=== PATIENT | male | born 1950 | race Caucasian/White ===

== ENCOUNTER 2016-07-29 08:51 | Day surgery (SDC) | payer BC, MEDICARE ==
[~2016-07-29] VITALS: Ht 188.1 cm; Wt 93.2 kg
[2016-07-29] VITALS (9 sets, daily range): BP systolic 100–118; BP diastolic 60–77; PULSE 60–62; TEMP 97
[~2016-07-29 08:51] MED LIST: AGGRENOX ER 251 CER PO; ASPIRIN E.C. 8181 MG PO; BETAPACE 80MG80 MG PO; CEPHALEXIN500 M1 PO; GLUCOSAMINE & C1 CA1 PO; GLUCOTROL XL10 MG PO; GLUCOTROL10 MG PO; KOMBIGLYZE XR 11 TER PO; LIPITOR 10MG10 MG PO; LOPRESSOR 225 MG/TAB PO; LOPRESSOR 550 MG/TAB PO; MOBIC15 MG PO; MULTI VITAMINS1 TAB PO; NITRO-DUR0.2 MG/PAT TD; NITRO-DUR0.4 MG/PAT TD; NITROSTAT0.4 MG/TAB SL; NORCO 325 MG-51 TAB PO; TOPROL XL 25MG25 MG PO; VASOTEC 2.2.5 MG/TAB PO; VITAMIN C500 MG PO; VOLTAREN GEL 1%1 TU TP
[2016-07-29] MEDS ORDERED: NITRO-DUR0.2 MG/PAT TD (09:30)
[2016-07-29] MEDS ORDERED: ALDACTONE 25MG25 M1 PO (09:31)
[2016-07-29 09:57] LABS: CALCIUM 8.9 mg/dL (8.4-10.2); CREATININE, serum 0.88 mg/dL (0.66-1.25); POTASSIUM 4.3 mmol/L (3.4-5.0)
[2016-07-29 10:02] LABS: PROTHROMBIN TIME 11.1 SECONDS (9.7-12.8)
[2016-07-29 10:11] LABS: HEMOGLOBIN 13.4 g/dl (13.5-18.0); MEAN CELL VOLUME 89 fl (80.0-100.0); MEAN CORPUSCULAR HEMOGLOBIN 31 pg (27.0-31.0); MEAN CORPUSCULAR HGB CONC 35 g/dl (33.0-37.0); MEAN PLATELET VOLUME 9.8 fl (7.4-10.4); PLATELET COUNT 225 K/mm3 (130-400); RED BLOOD COUNT 4.28 M/mm3 (4.20-5.60); REDCELL DISTRIBUTION WIDTH-CV 13.3 % (11.5-14.5); WHITE BLOOD COUNT 6.5 K/mm3 (4.8-10.8)
== END 2016-07-29 14:49 | disposition home or self-care (01) ==
LOC: COL.CAR 08:51
PROVIDERS: Internal Medicine Cardiovascular Disease
DX: I25.10 Atherosclerotic heart disease of native coronary artery without angina pectoris (principal); I47.2 Ventricular tachycardia; I25.5 Ischemic cardiomyopathy; Z95.1 Presence of aortocoronary bypass graft; Z95.5 Presence of coronary angioplasty implant and graft; Z79.84 Long term (current) use of oral hypoglycemic drugs
CPT/HCPCS: C1760; C1769; J2250; J3010; Q9967

== ENCOUNTER 2020-12-12 07:13 | Day surgery (SDC) | payer BC, MEDICARE ==
[~2020-12-12] VITALS: Ht 188 cm; Wt 93.4 kg
[2020-12-12] VITALS (8 sets, daily range): BP systolic 106–130; BP diastolic 59–83; PULSE 60–70
[~2020-12-12 07:13] MED LIST changes: +ALDACTONE 25MG25 M1 PO
[2020-12-12 08:17] LABS: BASO % 0.6 % (0.0-2.0); EOS # 0.3 K/mm3 (0.0-0.7); EOS % 3.8 % (0-4.0); GRAN # 4.1 K/mm3 (1.4-6.5); GRAN % 59.2 % (42.2-75.2); HEMATOCRIT 43.3 % (42.0-52.0); HEMOGLOBIN 14.7 g/dl (13.5-18.0); LYMPH # 1.7 K/mm3 (1.2-3.4); MEAN CELL VOLUME 89 fl (80.0-100.0); MEAN CORPUSCULAR HEMOGLOBIN 30 pg (27.0-31.0); MEAN CORPUSCULAR HGB CONC 34 g/dl (33.0-37.0); MEAN PLATELET VOLUME 9.3 fl (7.4-10.4); MONO # 0.8 K/mm3 (0.1-0.6); MONO % 12.1 % (1.7-9.3); PLATELET COUNT 179 K/mm3 (130-400); RED BLOOD COUNT 4.89 M/mm3 (4.20-5.60); REDCELL DISTRIBUTION WIDTH-CV 14.2 % (11.5-14.5)
[2020-12-12 08:32] LABS: CREATININE, serum 1.69 mg/dL (0.72-1.25); POTASSIUM 4.1 mmol/L (3.5-4.5)
[2020-12-12] MEDS ORDERED: JARDIANCE25 PO (08:32)
[2020-12-12] MEDS ORDERED: ELIQUIS 5MG PO (08:33)
[2020-12-12] MEDS ORDERED: VICTOZA6 MG/ML SQ (08:33)
[2020-12-12 08:35] LABS: PROTHROMBIN TIME 10.6 SECONDS (9.7-12.8)
[2020-12-12] MEDS ORDERED: LOPRESSOR 225 MG/TAB PO (08:37)
--- NOTE | 2020-12-12 08:43 | NUR ---
Pt to procedure,report to Itz Yañez.
--- NOTE | 2020-12-12 09:03 | NUR ---
SEE MERGE DOCUMENTATION FOR MEDICATION ADMINISTRATION AND INTRA/POSTPROCEDURE SEDATION ASSESSMENTS.
[2020-12-12] MEDS ORDERED: CEPHALEXIN500 M1 PO (11:01)
--- NOTE | 2020-12-12 12:26 | NUR ---
Discharge instructions given to pt.Pt verbalizes understanding.INT removed,catheter tip intact.Pt escorted out via wheelchair by this nurse.
== END 2020-12-12 12:35 ==
LOC: COL.CAR 07:13
PROVIDERS: Internal Medicine Cardiovascular Disease
DX: Z45.02 Encounter for adjustment and management of automatic implantable cardiac defibrillator (principal); I25.5 Ischemic cardiomyopathy; Z79.01 Long term (current) use of anticoagulants
CPT/HCPCS: C1721; J0690; J1644; J2250; J3010